=== PATIENT | male | born 1980 | race Caucasian/White ===

== ENCOUNTER 2016-04-25 15:15 | Emergency (ER) | payer MEDICAID ==
[2016-04-25 15:22] VITALS: RESP 16; TEMP 97.3
--- NOTE | 2016-04-25 16:20 | DX ---
Right Knee, Five Views April 25, 2016 Indication: Fall. Pain. Technique: AP, obliques, lateral, and Merchant views. Findings: The normally mineralized bones are anatomically aligned. No acute fracture. The intact mcneil lla is translated laterally 2 to 3 mm. No patella joint space narrowing. Moderate suprapatellar effus ion. No loose body. Impression: Small effusion. No acute fracture.
--- NOTE | 2016-04-25 16:24 | EDPHY ---
H & P Stated Complaint: SLIPPED AT WORK LANDED ON R KNEE Time Seen by Provider: 04/25/16 15:29 HPI/ROS: Chief Complaint: Right knee pain HPI: The patient presents to the ED with complaints of right knee pain and mild effusion after he fell at work yesterday. The patient reportedly fell directly onto his patella. He is having some pain with ambulation. While at rest he has no significant pain. He has no complaints of instability. He denies any distal numbness or weakness. REVIEW OF SYSTEMS: Neuro: no headache, numbness, weakness Musculoskeletal: as above Skin: no abrasion or lacerations Source: Patient Exam Limitations: No limitations - Personal History Current Tetanus/Diphtheria Vaccine: Yes Tetanus Vaccine Date: 2010 - Medical/Surgical History Hx Asthma: Yes Hx Chronic Respiratory Disease: No Hx Diabetes: No Hx Cardiac Disease: No Hx Renal Disease: No Hx Cirrhosis: No Hx Alcoholism: No Hx HIV/AIDS: No Hx Splenectomy or Spleen Trauma: No Other PMH: anxiety - Social History Smoking Status: Current some day smoker - Physical Exam Exam: General: No acute distress Right knee: Effusion noted, no patellar tenderness, minimal tenderness over the tibial plateau. Neuro: Sensation intact to light touch Vascular: 2+ popliteal and dorsalis pedis pulse noted throughout the right lower extremity Constitutional: Initial Vital Signs Temperature (C) 36.3 C 04/25/16 15:19 Heart Rate 72 04/25/16 15:19 Respiratory Rate 16 04/25/16 15:19 Blood Pressure 135/77 H 04/25/16 15:19 O2 Sat (%) 96 04/25/16 15:19 O2 Delivery Mode Room Air Allergies/Adverse Reactions: Penicillins Allergy (Verified 04/25/16 15:18) Home Medications: Medication Instructions Recorded NK [No Known Home Meds] 04/25/16 Medical Decision Making - Diagnostics Imaging: Right knee x-ray: Images reviewed by myself, small effusion, negative for acute fracture. ED Course/Re-evaluation: The patient presents to the ED after a fall and mild knee injury. I see no obvious fracture on the x-ray today. The patient will be advised to ice the area of swelling. He is instructed to follow up with our on-call orthopedic surgeon for any persistent pain or swelling as this may be the sign of an injury not seen on the x-ray today such as an occult fracture, meniscal or ligamentous injury. Differential Diagnosis: Differential diagnosis considered includes fracture, sprain, dislocation Departure - Departure Disposition: Home, Routine, Self-Care Clinical Impression: Knee sprain Condition: Good Instructions: Knee Sprain (ED) Additional Instructions: 1. Please follow up with orthopedic surgeon you have been referred to for any pain or swelling that persists past 3-5 days. This may be the sign of an injury not seen on the x-ray today such as an occult fracture, injury to a ligament or meniscus. 2. Ice as directed. 3. Take Ibuprofen or Motrin 600 mg by mouth three times a day. Referrals: Daniel Ribeiro MD [Medical Doctor] - As per Instructions
[2016-04-25 16:34] VITALS: BP 130/85; PULSE 65; O2SAT 93
== END 2016-04-25 16:34 | disposition home or self-care (01) ==
DX: S83.91XA Sprain of unspecified site of right knee, initial encounter (principal); F17.200 Nicotine dependence, unspecified, uncomplicated; W01.0XXA Fall on same level from slipping, tripping and stumbling without subsequent striking against object, initial encounter; Y92.69 Other specified industrial and construction area as the place of occurrence of the external cause; Y99.0 Civilian activity done for income or pay; Y93.89 Activity, other specified

== ENCOUNTER 2017-01-05 12:08 | Emergency (ER) | payer MEDICAID ==
--- NOTE | 2017-01-05 13:40 | EDPHY ---
H & P Stated Complaint: Slammed R index finger in car door Source: Patient Exam Limitations: No limitations - Personal History Current Tetanus Diphtheria and Acellular Pertussis (TDAP): Yes Tetanus Vaccine Date: 2010 - Medical/Surgical History Hx Asthma: Yes Hx Chronic Respiratory Disease: No Hx Diabetes: No Hx Cardiac Disease: No Hx Renal Disease: No Hx Cirrhosis: No Hx Alcoholism: No Hx HIV/AIDS: No Hx Splenectomy or Spleen Trauma: No Other PMH: anxiety - Social History Smoking Status: Current every day smoker HPI/ROS: CHIEF COMPLAINT: Right index finger pain, slammed in car door HISTORY OF PRESENT ILLNESS: Patient complains of right finger pain after slamming it in a car door this morning. Accidentally slammed the car door on his right finger approximately 3 hours ago. Painful in the right index finger only. No pain in the right hand or wrist. No numbness or tingling. No difficulty bending or straightening the finger. No laceration or puncture. [id number] pain worse with palpation. Improved at rest. No radiating pain. No other associated complaints or modifying factors REVIEW OF SYSTEMS: Ten systems reviewed and are negative unless otherwise noted in the HPI PAST MEDICAL HISTORY: Propecia use PAST SURGICAL HISTORY: None SOCIAL HISTORY: Uses vaporizer nicotine. FAMILY HISTORY: Noncontributory EXAMINATION General Appearance: Alert, no distress Neck: Normal inspection, supple, non-tender Cardiovascular: Regular rate. Symmetric radial pulses 2+. Neurological: A&O, nonfocal, strength is symmetric in both limbs. Skin: Warm and dry, no rash. Mild ecchymosis of the right finger lunula and right index finger subungual hematoma, less than 1/3 of the nail bed. No laceration. No puncture wound. Extremities: Tenderness of the right index finger distal phalanx. Range of motion is intact with full flexion extension. Neurovascular intact with brisk cap refill. No tenderness elsewhere. Psychiatric: Mood and affect normal DIFFERENTIAL DIAGNOSES: Including but not limited to fracture, crush injury, sprain, subungual hematoma MDM: 1:35 p.m. Crush injury to the right index finger with close, nondisplaced fracture of the distal phalanx. He is neurovascular intact. No laceration. Tolerable pain level. There is a small, less than 1/3, subungual hematoma. I did recommended offer trephination of the hematoma but he has declined. We discussed risks, benefits and alternative is, and he continues to decline the trephination. We discussed discharge home with a finger splint and instructions follow up with a hand surgeon. We discussed that he should take ibuprofen 800 mg every 8 hours. We discussed that he should return to the emergency department for worsening pain for trephination of the hematoma. He is comfortable this plan. Discharged home in stable condition, neurovascular intact. (Mark Cast) Constitutional: Initial Vital Signs Heart Rate 70 01/05/17 12:12 Respiratory Rate 16 01/05/17 12:12 Blood Pressure 135/92 H 01/05/17 12:12 O2 Sat (%) 97 01/05/17 12:12 O2 Delivery Mode Room Air Allergies/Adverse Reactions: Penicillins Allergy (Mild, Verified 01/05/17 12:11) rash as child Home Medications: Medication Instructions Recorded Finasteride [Proscar 5 MG (*)] 5 mg PO DAILY 01/05/17 Medical Decision Making ED Course/Re-evaluation: The patient was evaluated and managed by the physician junior assistant manager. I have reviewed this chart and I agree with the findings and plan of care as documented , as indicated by my signature. I am the secondary supervising physician. ( Leanna Soto) Departure - Departure Disposition: Home, Routine, Self-Care Clinical Impression: Nondisplaced fracture of distal phalanx of right index finger, initial encounter for closed fracture, Subungual hematoma of digit of hand Condition: Good Instructions: Subungual Hematoma (ED), Finger Fracture (ED) Additional Instructions: 1. Ibuprofen 600-800 every 8 hours as needed 2. Ice and elevate 3. Fingers on in place at all times 4. follow-up with hand surgeon 5. Return to emergency department for worsening pain or should to change her mind about having the hematoma drained Referrals: NONE *PRIMARY CARE P,. [Primary Care Provider] - As per Instructions Rinku Manrique MD [Medical Doctor] - As per Instructions
[2017-01-05 13:44] VITALS: BP 133/67; PULSE 71; RESP 18; TEMP 97.9; O2SAT 95
== END 2017-01-05 13:53 | disposition home or self-care (01) ==
DX: S62.660A Nondisplaced fracture of distal phalanx of right index finger, initial encounter for closed fracture (principal); S60.121A Contusion of right index finger with damage to nail, initial encounter; J45.909 Unspecified asthma, uncomplicated; F17.200 Nicotine dependence, unspecified, uncomplicated; W23.0XXA Caught, crushed, jammed, or pinched between moving objects, initial encounter; Y92.810 Car as the place of occurrence of the external cause; Y99.8 Other external cause status
CPT/HCPCS: L3925